=== PATIENT | male | born 1950 | race Caucasian/White ===

== ENCOUNTER 2016-04-19 12:15 | Inpatient (IN) | payer OTHER ==
[~2016-04-19] VITALS: Ht 170.2 cm; Wt 75.6 kg
[~2016-04-19 12:15] MED LIST: ASPIRIN81 M1 PO; ASPIRIN81 M2 PO; BENZONATATE100 MG PO; CARVEDILOL12.5 MG PO; COLCRYS0.6 MG PO; Coreg PO; FUROSEMIDE20 MG PO; FUROSEMIDE40 MG PO; HYDROCODON-ACE1 EACH PO; LISINOPRIL20 MG PO; Levaquin PO; SIMVASTATIN20 MG PO; VENTOLIN HFA18 GM IH; ZOCOR20 MG PO
[2016-04-19 13:31] LABS: HEMATOCRIT 39.7 % (38.0-50.0); MCH 32.7 PG (29.0-34.0); MCHC 32.7 G/DL (30.0-36.0); MEAN PLAT.VOLUME 10.6 uM^3 (9.0-12.4); PLATELET COUNT 144 K/uL (156-360); RBC DIS.WIDTH-CV 14.1 % (11.8-14.6); RBC DIS.WIDTH-SD 50.5 % (39-53); RED BLOOD COUNT 3.97 M/uL (4.00-5.50); WHITE BLOOD COUNT 5.9 K/uL (4.1-10.2)
[2016-04-19 13:41] LABS: CHLORIDE 105 mEq/L (99-109); POTASSIUM 4.3 mEq/L (3.7-5.4); SODIUM 141 mEq/L (136-147)
[2016-04-19 13:43] LABS: GLUCOSE 76 mg/dL (70-99)
[2016-04-19 13:44] LABS: ANION GAP 8 MEQ/L (2-14)
[2016-04-19 13:45] LABS: TOTAL BILIRUBIN 0.5 mg/dL (0.0-1.0)
[2016-04-19 13:46] LABS: ALKALINE PHOSPHATASE 79 IU/L (3-129)
[2016-04-19 13:47] LABS: GFR ESTIMATE (CALCULATED) 43 mL/min/
[2016-04-19 13:48] LABS: UREA NITROGEN (BUN) 26 mg/dL (9-23)
[2016-04-19 13:52] LABS: TROP-I INTERPRETATION NEGATIVE; TROPONIN-I 0.01 ng/mL (0.0-0.30)
[2016-04-19 16:05] LABS: BASE EXCESS 2.4 mEq/L (-3 to +3); BICARBONATE 27.2 mEq/L (22-26); CARBOXY HGB 2.8 % (0-5); COMMENTS - BLOOD GASES A+C+; DEVICE NC; METHEMOGLOBIN 1.1 % (0-1.5); O2 FLOW 3 L/MIN; PCO2 42 mm Hg (35-45); PO2 58 mm Hg (80-100); SITE LR; pH 7.42 (7.35-7.45)
[2016-04-19] MEDS ORDERED: VITAMIN D2000 UNIT PO (16:39)
[2016-04-19] MEDS ORDERED: CALCITRIOL0.25 MCG PO (16:39)
[2016-04-19] MEDS ORDERED: DULERA 100 MCG/13 GM IH (16:39)
[2016-04-19] MEDS ORDERED: SPIRIVA1 INHALATI IH (16:40)
[2016-04-19] MEDS ORDERED: HYDROCODON-ACE1 EAC7 PO (16:40)
[2016-04-19 21:29] VITALS: BP 90/62
[2016-04-20 00:06] VITALS: BP 93/55
[2016-04-20 04:18] VITALS: BP 115/58
[2016-04-20 07:25] LABS: INTERNAL CONTROL VALID? YES
[2016-04-20 09:15] VITALS: BP 143/85
[2016-04-20 11:40] VITALS: BP 132/69
[2016-04-20 16:59] LABS: INFLUENZA A VIRAL ANTIGEN NEGATIVE; INFLUENZA B VIRAL ANTIGEN NEGATIVE
[2016-04-20 20:05] VITALS: BP 119/70
[2016-04-21] VITALS (7 sets, daily range): BP systolic 112–162; BP diastolic 61–80
[2016-04-21 07:41] LABS: ANION GAP 11 MEQ/L (2-14); CHLORIDE 103 MEQ/L (99-109); GFR ESTIMATE (CALCULATED) 54 mL/min/; POTASSIUM 4.8 MEQ/L (3.7-5.4); SAMPLE HEMOLYSIS CHECK 0; SAMPLE ICTERIC CHECK 0; SAMPLE LIPEMIA CHECK 0; SODIUM 141 MEQ/L (136-147); UREA NITROGEN (BUN) 33 mg/dL (9-23)
[2016-04-21 07:46] LABS: GLUCOSE 114 mg/dL (70-99)
[2016-04-21 08:18] LABS: EOSINOPHIL (%) 0.1 % (0-5); IMMATURE GRANULOCYTE (%) 0.1 % (0.0-0.7); IMMATURE GRANULOCYTE COUNT 0.1 K/uL; LYMPHOCYTE COUNT 0.6 K/uL (1.0-2.8); MCH 32.8 PG (29.0-34.0); MCHC 32.9 G/DL (30.0-36.0); MCV 99.8 FL (86-99); MONOCYTE (%) 3.8 % (3-12); MONOCYTE COUNT 0.5 K/uL (0-0.8); NEUTROPHIL (%) 91.1 % (45-76); NEUTROPHIL COUNT 11.2 K/uL (1.8-6.4); RBC DIS.WIDTH-CV 13.5 % (11.8-14.6); RBC DIS.WIDTH-SD 48.3 % (39-53); RED BLOOD COUNT 4.21 M/uL (4.00-5.50)
[2016-04-21 08:25] LABS: WHITE BLOOD COUNT 12.3 K/uL (4.1-10.2)
[2016-04-21 10:02] LABS: PLAT.SUFFICIENCY ADEQUATE; USER ID CL
[2016-04-21 11:32] LABS: PLATELET COUNT UNABLE TO REPORT K/uL (156-360)
[2016-04-22 08:02] VITALS: BP 131/75
[2016-04-22 09:22] LABS: HEMATOCRIT 41.8 % (38.0-50.0); MCH 32.2 PG (29.0-34.0); MCHC 32.5 G/DL (30.0-36.0); MCV 99.1 FL (86-99); RBC DIS.WIDTH-CV 13.7 % (11.8-14.6); RBC DIS.WIDTH-SD 49.6 % (39-53); RED BLOOD COUNT 4.22 M/uL (4.00-5.50); WHITE BLOOD COUNT 13.5 K/uL (4.1-10.2)
[2016-04-22 09:47] LABS: MEAN PLAT.VOLUME 10.6 uM^3 (9.0-12.4)
[2016-04-22 09:48] LABS: PLATELET COUNT 184 K/uL (156-360)
[2016-04-22 09:53] LABS: ANION GAP 9 MEQ/L (2-14); CHLORIDE 101 MEQ/L (99-109); GFR ESTIMATE (CALCULATED) 46 mL/min/; GLUCOSE 105 mg/dL (70-99); POTASSIUM 4.6 MEQ/L (3.7-5.4); SAMPLE HEMOLYSIS CHECK 0; SAMPLE ICTERIC CHECK 0; SAMPLE LIPEMIA CHECK 0; SODIUM 136 MEQ/L (136-147); UREA NITROGEN (BUN) 38 mg/dL (9-23)
[2016-04-22 16:43] VITALS: BP 135/75
[2016-04-22] MEDS ORDERED: LOSARTAN POTASS25 MG PO ×2 (17:18→17:29)
[2016-04-22] MEDS ORDERED: PREDNISONE20 MG PO (17:18)
[2016-04-22] MEDS ORDERED: ZITHROMAX500 MG PO (17:28)
== END 2016-04-22 18:30 | disposition home or self-care (01) | DRG 189 ==
LOC: EME 12:15 → EDOF 15:27 → 4SOUTH 15:27
PROVIDERS: Emergency Medicine; Hospitalist; Physician Assistant; Student in an Organized Health Care Education/Training Program
DX: J96.21 Acute and chronic respiratory failure with hypoxia (principal); J44.1 Chronic obstructive pulmonary disease with (acute) exacerbation; I50.32 Chronic diastolic (congestive) heart failure; I12.9 Hypertensive chronic kidney disease with stage 1 through stage 4 chronic kidney disease, or unspecified chronic kidney disease; N18.3 Chronic kidney disease, stage 3 (moderate); E78.5 Hyperlipidemia, unspecified; I25.10 Atherosclerotic heart disease of native coronary artery without angina pectoris; Z95.2 Presence of prosthetic heart valve; Z91.041 Radiographic dye allergy status; Z87.891 Personal history of nicotine dependence; Z87.01 Personal history of pneumonia (recurrent); Z88.2 Allergy status to sulfonamides; Z88.1 Allergy status to other antibiotic agents; Z99.81 Dependence on supplemental oxygen; M10.9 Gout, unspecified; Z95.5 Presence of coronary angioplasty implant and graft
CPT/HCPCS: 36600; 71020; 71250; 80048; 80053; 82803; 83605; 83880; 84484; 85025; 85027; 87040; 87070; 87205; 87449; 87502; 93005; 94640; 94640 76; 94760; 94799; 99202; 99281; 99285; J1650; J1956; J2930; J7512